=== PATIENT | female | born 2000 | race Caucasian/White ===

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

== ENCOUNTER 2021-06-23 15:37 | Emergency (ER) | payer BC, SELFPAY ==
[2021-06-23 15:38] VITALS: BP 145/90; PULSE 71; RESP 16; TEMP 36.9; O2SAT 98; BMI 36.0
--- NOTE | 2021-06-23 16:26 | HMH.EDUTC ---
[facility] [place] Clinical Impression: Viral upper respiratory illness Disposition: Home, Self-Care Condition on Discharge: Good Instructions: DI for Viral Upper Respiratory Infection -- Adult Additional Instructions: *Monitor Temp, Over the counter Motrin or Tylenol as directed/as needed Tylenol every 4 hours and Motrin every 6 hours (as long as your family doctor has told you that you can take it) for fever or pain. and straight to ER if unable to lower temp less than 101.0 after medication given *Warm salt water gargles may help to soothe the throat *Throat Lozenges *Warm fluids like tea with honey may help to soothe the throat *Sleep elevated *Humidifier/Vaporizer *Flonase 2 sprays in each nostril daily but be aware that it may take 2-3 days before you notice improvement *Bromfed may cause drowsiness. Know how it effects you (your child) before driving, caring for small child, or sending your child to school. Not other antihistamines/allergy medications while taking bromfed Follow up IMMEDIATELY for new or worsening symptoms or no Noticeable improvement over the next 48-72 hours. 911 for difficulty breathing or swallowing You were tested for today for COVID19 your test result should be back in the next 24-48 hours, you may call to the [facility] to see if your test results are back in the next 48 hours [phone] [facility] hours are 9am-9pm You was given a handout with instructions for Self Quarantine and Self isolation for while you wait on test results and what to do if they are positive If you are positive the Health Dept will be contacting you also Prescriptions: Brompheniramine/Pseudoephed/Dm [Bromfed Dm Cough Syrup] 5 - 10 ml PO Q46H PRN #200 ml PRN Reason: Cough Transmission Status: Received by [id number] Fluticasone Propionate [Flonase 50mcg nasal spray 16gm] 1 spr NS DAILY #1 bottle Transmission Status: Received by [id number] Referrals: Ludy Antonio PA [Primary Care Provider] - As needed Forms: Work/School Release Time of Disposition: 16:34 Medical Decision Making - Maco Inquiry Pt receiving controlled substance: No [facility] was queried for this patient: No Vital Signs: 06/23/21 15:38 Temperature 98.4 F Temperature Source Oral Pulse Rate [Right] 71 Respiratory Rate 16 Blood Pressure [Right Arm] 145/90 H Blood Pressure Mean [Right Arm] 108 Blood Pressure Source [Right Arm] Automatic Cuff Blood Pressure Position [Right Arm] Sitting 02 Sat by Pulse Oximetry 98 Oxygen Delivery Method Room Air Orders (Tests/Meds): ORDERS Category Date Time Status Covid-19 Nasal PCR ([facility]) Routine Lab 06/23/21 16:05 [place] [facility] [place] - General Stated complaint: Covid Test Time Seen by Provider: 06/23/21 16:26 Mode of Arrival: Ambulatory Source of Information: Patient Limitations: No Limitations Description of Symptoms (Recalled from Triage Doc. by RN): pt c/o sore throat, cough, drainage, headache and requests covid test HEENT Symptoms (Recalled from RN notes): Yes Resp Symptoms (Recalled from RN notes): No Skin Symptoms (Recalled from RN notes): No MS Symptoms (Recalled from RN notes): No Functional Status (Recalled from RN notes): na - History of Present Illness Provider Complaint: Pateint states that she has been having cough, nasal congestion, runny nose and sore throat States that she has been taking over the counter medication and it has helped some but she wanted to come in and get tested for COVID since she is having symptoms - Related Data Home Medications Medication Instructions Recorded Confirmed Spironolactone 100 mg PO DAILY 09/18/19 09/18/19 norgestimate-ethinyl estradioL 1 tab PO DAILY 09/18/19 09/18/19 [Tri-Sprintec Tablet] Previous Rx's Medication Instructions Recorded Azithromycin [Z-Thomas 250mg Tab*] 250 mg PO UD DOSE PK #6 tab 09/18/19 Brompheniramine/Pseudoephed/Dm 5 ml PO Q6HP PRN #240 syrup 09/18/19 [Bromfed Dm Cough Syrup] predniSONE [Predn
[2021-06-23 16:45] VITALS: BP 142/80; PULSE 70; RESP 16; TEMP 36.9; O2SAT 98
== END 2021-06-23 16:46 | disposition home or self-care (01) ==
PROVIDERS: Emergency Provider Nurse Practitioner; PCP Physician Assistant
DX: J06.9 Acute upper respiratory infection, unspecified (principal); Z20.822 Contact with and (suspected) exposure to COVID-19
CPT/HCPCS: 99202; G0463; U0003

== ENCOUNTER 2021-07-23 09:14 | Emergency (ER) | payer BC, SELFPAY ==
[2021-07-23 09:40] VITALS: BP 127/73; PULSE 86; RESP 18; TEMP 36.8; O2SAT 98; BMI 35.1
--- NOTE | 2021-07-23 10:02 | HMH.EDUTC ---
[facility] [place] Disposition Clinical Impression: COVID-19 virus test result unknown Disposition: Home, Self-Care Condition on Discharge: Good Instructions: How to Care for Someone with COVID-19, Preventing the Spread of Coronavirus Discharge Instructions Additional Instructions: covid swab was sent to lab, call later today for results. self isolate until test results are known to be negative Referrals: Ludy Antonio PA [Primary Care Provider] - Time of Disposition: 10:05 Medical Decision Making - [facility] Inquiry Pt receiving controlled substance: No Orders (Tests/Meds): ORDERS Category Date Time Status Covid-19 Nasal PCR ([facility]) Routine Lab 07/23/21 09:[address] [facility] [place] HPI - General Chief complaint: [facility] Stated complaint: covid test Time Seen by Provider: 07/23/21 10:02 Mode of Arrival: Ambulatory Source of Information: Patient Limitations: No Limitations - History of Present Illness Provider Complaint: 21 yr old female presens for covid test. pt states on her roommate tested postive for covid. pt states she has nasal congestion but had that for a week before exposer. no other symptom - Related Data Home Medications Medication Instructions Recorded Confirmed Spironolactone 100 mg PO DAILY 09/18/19 09/18/19 norgestimate-ethinyl estradioL 1 tab PO DAILY 09/18/19 09/18/19 [Tri-Sprintec Tablet] Previous Rx's Medication Instructions Recorded Azithromycin [Z-Thomas 250mg Tab*] 250 mg PO UD DOSE PK #6 tab 09/18/19 Brompheniramine/Pseudoephed/Dm 5 ml PO Q6HP PRN #240 syrup 09/18/19 [Bromfed Dm Cough Syrup] predniSONE [Prednisone 20mg 20 mg PO BID 4 Days #8 tab 09/18/19 Tab] Brompheniramine/Pseudoephed/Dm 5 - 10 ml PO Q46H PRN #200 ml 06/23/21 [Bromfed Dm Cough Syrup] Fluticasone Propionate [Flonase 1 spr NS DAILY #1 bottle 06/23/21 50mcg nasal spray 16gm] Allergies Allergy/AdvReac Type Severity Reaction Status Date / Time No Known Allergies Allergy Verified 08/06/18 14:28 [facility] History - Hepatitis A Screen Attestation statement:: This patient has been screened for Hepatitis A risk factors. I have reviewed the patient's past medical history: Yes Medical History: Denies:: Cancer, Diabetes Mellitus Type 1, Diabetes Mellitus Type 2, MRSA Amputation: No Fractures: No - Social History Smoking Status: Never smoker Alcohol Intake: never Occupational Status: other ROS Obtained: Yes Systems reviewed as appropriate & no additional complaints - Constitutional Constitutional: Reports system reviewed and no additional complaints, except as docu, Denies fever(s) - Eyes Eyes: Reports system reviewed and no additional complaints, except as docu, Denies blurry vision - ENT Ears, Nose, Mouth, and Throat: Reports system reviewed and no additional complaints, except as docu, Reports nasal congestion, Denies sore throat - Cardiovascular Cardiovascular: Reports system reviewed and no additional complaints, except as docu, Denies chest pain - Respiratory Respiratory: Reports system reviewed and no additional complaints, except as docu, Denies change in phlegm color - Gastrointestinal Gastrointestingal: Reports: system reviewed and no additional complaints, except as docu. Denies: nausea, vomiting - Genitourinary Female Genitourinary: Reports system reviewed and no additional complaints, except as docu - Musculoskeletal Musculoskeletal: Reports system reviewed and no additional complaints, except as docu, Denies joint pain - Integumentary/Breasts Skin/Breast: Reports system reviewed and no additional complaints, except as docu, Denies bleeding lesions - Neurologic Neurologic: Reports system reviewed and no additional complaints, except as docu, Denies dizziness - Endocrine Endocrine: Reports system reviewed and no additional complaints, except as docu, Denies fatigue - Hematologic/Lymphatic Henatologic/Lymphatic: Reports system reviewed and no addit
[2021-07-23 10:11] VITALS: BP 127/73; PULSE 86; RESP 18; TEMP 36.8; O2SAT 98
== END 2021-07-23 10:14 | disposition home or self-care (01) ==
PROVIDERS: Emergency Provider Nurse Practitioner Family; PCP Physician Assistant
DX: Z20.822 Contact with and (suspected) exposure to COVID-19 (principal)
CPT/HCPCS: 99202; G0463; U0003